=== PATIENT | female | born 1950 | race Caucasian/White ===

== ENCOUNTER 2017-04-11 08:47 | Emergency (ER) | payer MEDICARE, MEDICAID, OTHER | END 2017-04-11 09:45 | disposition home or self-care (01) | LOC: MADERS 08:47 | DX: L03.211 Cellulitis of face (principal); E78.5 Hyperlipidemia, unspecified; E66.9 Obesity, unspecified; Z87.891 Personal history of nicotine dependence | CPT/HCPCS: 99283 ==

== ENCOUNTER 2017-11-14 08:22 | Outpatient (CLI) | payer MEDICARE, MEDICAID ==
[2017-11-14 09:25] LABS: #Basophils 0.1 thou/uL (0.0-0.2); #Eosinphils 0.2 thou/uL (0.0-0.7); #Lymphocytes 3.5 thou/uL (1.20-3.40); #Monocytes 0.8 thou/uL (0.11-0.59); #Neutrophils 4.8 thou/uL (1.40-6.50); %Basophils 1.1 % (0.0-1.0); %Eosinophils 1.7 % (0.0-10.0); %Lymphocytes 37.2 % (21.0-51.0); %Monocytes 8.7 % (0.0-10.0); %Neutrophils 51.4 % (42.0-75.0); Hemoglobin 11.9 g/dL (12.0-16.0); Mean Corpuscular HGB CONC 32.5 g/dL (32.0-36.0); Mean Corpuscular Hemoglobin 28.8 pg (27.0-31.0); Mean Corpuscular Volume 88.7 fl (81.0-99.0); Mean Platelet Volume 6.7 fL (7.4-10.4); Platelet Count 327 thou/uL (130-400); RBC Distribution Width 12.9 % (11.5-14.5); Red Blood Cell (RBC) Count 4.12 mill/uL (4.20-5.40); White Blood Cell (WBC) Count 9.4 thou/uL (4.8-10.8)
[2017-11-14 09:37] LABS: Cardiac Risk 2.6 (Less than 4.5)
--- NOTE | 2017-11-14 10:07 | RAD ---
LEFT KNEE 4 VIEWS: HISTORY: Knee pain. FINDINGS: Moderate tricompartmental osteophytosis. Joint spaces are preserved. Fluid distends the suprapatell ar bursa on the lateral view. No acute fracture or dislocation. IMPRESSION: Joint fluid may reflect the otherwise mild osteoarthritic changes or internal derangement. No acute osseous abnormalities are demonstrated. POS: [facility]
--- NOTE | 2017-11-14 10:50 | RAD ---
LUMBAR SPINE 2 VIEWS: Date: 11/14/17 HISTORY: Low back pain. FINDINGS: Five lumbar-type vertebrae. Pedicles are intact. Leftward convex rotatory scoliotic curvature. Minima l spondylolisthesis at the lumbosacral junction with suggested lucencies through the pars interarticu álvaro. Vertebral body heights are maintained. Osseous structures are demineralized. Mild osteophytosi s. Minimal spondylolysis at the lumbosacral junction. Bilateral spondylolisthesis is apparent on prio r CT exams. Osseous structures are demineralized. IMPRESSION: 1. Bilateral spondylolysis at the lumbosacral junction with minimal spondylolisthesis. Stable. 2. Lumbar spondylosis. No evidence of compression fracture. 3. Constipation. POS: [facility]
== END 2017-11-14 08:23 | disposition home or self-care (01) ==
LOC: MADLABBHPM 08:22
PROVIDERS: ATTEND Family Medicine
DX: M25.562 Pain in left knee (principal); M54.42 Lumbago with sciatica, left side; E78.5 Hyperlipidemia, unspecified; G47.00 Insomnia, unspecified; F32.9 Major depressive disorder, single episode, unspecified; M47.897 Other spondylosis, lumbosacral region; M43.17 Spondylolisthesis, lumbosacral region; K59.00 Constipation, unspecified; M17.12 Unilateral primary osteoarthritis, left knee
CPT/HCPCS: 36415; 72100; 80061; 84443; 85025

== ENCOUNTER 2018-01-06 22:54 | Emergency (ER) | payer MEDICARE, OTHER ==
[2018-01-06] MEDS ORDERED: Ketorolac Tromethamine 60 MG/2 ML VIAL ONE (23:41)
--- NOTE | 2018-01-06 23:47 | RAD ---
CHEST ONE VIEW: 01/06/18 HISTORY: Chest pain. COMPARISON: Radiograph 2015. FINDINGS: There is advanced dextroscoliosis of the thoracic spine which appears to be mildly progressed in comp arison to 2015 examination. Heart size appears enlarged although may be sequela of patient's scoliosi s. No focal air space consolidation, pneumothorax or effusion. No acute osseous abnormality. IMPRESSION: Mild worsening scoliosis without acute intrathoracic abnormality. POS: [facility]
--- NOTE | 2018-01-06 23:50 | RAD ---
LUMBAR SPINE TWO VIEW: 01/06/18 HISTORY: Injury. COMPARISON: Radiographs 11/14/17. FINDINGS: The spondylolysis at L5 is similar. There is concern for anterior superior vertebral body height loss at T11 and T12 which does not appear to be progressing to comparison examination. No significant lis thesis. Mild levoscoliosis. No abnormal calcifications projecting over the expected course of the ureters. Small phleboliths in t he pelvis. IMPRESSION: T11 and T12 superior end plate height loss, age indeterminate for fracture although does not appear t o be significantly changed from the comparison examination although limited as the other exam did not have good visualization of the thoracic spine. Nonemergent followup MRI may be beneficial. POS: [facility]
== END 2018-01-07 00:25 | disposition home or self-care (01) ==
LOC: MADERS 22:54
DX: R07.89 Other chest pain (principal); M54.5 Low back pain; E78.5 Hyperlipidemia, unspecified; M19.90 Unspecified osteoarthritis, unspecified site; E66.9 Obesity, unspecified; G89.29 Other chronic pain; G47.00 Insomnia, unspecified; F32.9 Major depressive disorder, single episode, unspecified; Z79.899 Other long term (current) drug therapy; Z87.891 Personal history of nicotine dependence; W17.89XA Other fall from one level to another, initial encounter
CPT/HCPCS: 71045; 72100; 96372; J1885

== ENCOUNTER 2018-11-16 18:50 | Emergency (ER) | payer MEDICARE, OTHER ==
[~2018-11-16 18:50] MED LIST: Iopamidol 370 76% 100 ML VIAL ONE
[2018-11-16] MEDS ORDERED: Pantoprazole 40 MG VIAL ONE (19:08)
[2018-11-16] MEDS ORDERED: Sodium Chloride 0.9% 500 ML ONE (19:09)
[2018-11-16] MEDS ORDERED: Ondansetron PF 4 MG/2 ML Vial ONE ×2 (19:09→19:18)
[2018-11-16 19:19] LABS: #Basophils 0.1 thou/uL (0.0-0.2); #Lymphocytes 1.3 thou/uL (1.20-3.40); #Monocytes 0.3 thou/uL (0.11-0.59); %Basophils 0.4 % (0.0-1.0); %Lymphocytes 10.2 % (21.0-51.0); %Monocytes 2.5 % (0.0-10.0); %Neutrophils 86.9 % (42.0-75.0); Hemoglobin 10.5 g/dL (12.0-16.0); Mean Corpuscular HGB CONC 32.1 g/dL (32.0-36.0); Mean Corpuscular Hemoglobin 28.5 pg (27.0-31.0); Mean Corpuscular Volume 88.7 fL (78.0-98.0); Mean Platelet Volume 6.7 fL (7.4-10.4); Platelet Count 420 thou/uL (130-400); RBC Distribution Width 12.6 % (11.5-14.5); White Blood Cell (WBC) Count 12.7 thou/uL (4.8-10.8)
[2018-11-16 19:37] LABS: ALT (SGPT) 14 U/L (8-55); AST (SGOT) 18 U/L (5-34); Albumin 4.1 g/dL (3.4-4.8); Alkaline Phosphatase 65 U/L (40-150); Anion Gap 13 mmol/L (10-20); BUN (Urea Nitrogen) 14 mg/dL (9.8-20.1); Bilirubin, Total 0.2 mg/dL (0.2-1.2); Calc. Creatinine Clearance 0 mL/min (70-130); Calcium 9.4 mg/dL (7.8-10.44); Carbon Dioxide 27 mmol/L (23-31); Chloride 102 mmol/L (98-107); Estimated GFR-MDRD 72; Globulin 2.7 g/dL (2.4-3.5); Glucose 139 mg/dL (80-115); Potassium 3.3 mmol/L (3.5-5.1); Protein, Total 6.8 g/dL (6.0-8.3); Sodium 139 mmol/L (136-145)
[2018-11-16 20:17] LABS: Bilirubin Negative (Negative); Blood, Urine Negative (Negative); Clarity Clear (Clear); Glucose, Urine (Dipstick) 100 mg/dL (Negative); Leukocyte Negative (Negative); Nitrite Negative (Negative); Protein, Urine (Dipstick) Trace mg/dL (Neg-Trace); Urobilinogen 0.2 mg/dL (0.2-1.0)
--- NOTE | 2018-11-16 20:33 | CT ---
CT of abdomen and pelvis: 11/16/2018 COMPARISON: 11/02/2014 HISTORY: Nausea, vomiting, pain TECHNIQUE: Axial CT imaging at 5 mm intervals from lung bases through pubic symphysis with IV contras t. Coronal reformatted imaging obtained. FINDINGS: The visualized lung bases are unremarkable. The superior most aspect of the liver dome is n ot visualized. The imaged hepatic parenchyma demonstrates no acute findings. The gallbladder is distended, stable when compared to the 2014 examination, measuring 5 cm in transve rse dimension. There is a subtle isodense abnormality within the gallbladder lumen measuring 2.1 cm, likely on the basis of a noncalcified stone. This could be better assessed via follow-up ultrasou nd. Stable calcification of the spleen noted peripherally. The pancreas, adrenal glands, and kidneys appear unremarkable. The uterus appears surgically absent. The lack of oral contrast media limits assessment of the bowel. There is no evidence for bowel obstruction. The appendix is unremarkable. Vascular structures of the abdomen and pelvis appear grossly unremarkable. No lymphadenopathy is noted within the abdomen/pelvis. Osseous structures demonstrate dextroscoliosis of the upper lumbar spine. There are old posterior rib fractures bilaterally. No acute osseous abnormality is seen. Bilateral L5 pars defects are present. IMPRESSION: Stable gallbladder distention. Lesion within the gallbladder lumen may signify a noncalci fied stone. This could be better assessed via ultrasound. Numerous chronic findings as detailed above.
[2018-11-16] MEDS ORDERED: Prochlorperazine 10 MG/2 ML VIAL ONE (20:48)
[2018-11-16] MEDS ORDERED: NS 0.9% w/ 20 MEQ KCL 1,000 ML ONE (20:48)
[2018-11-16] MEDS ORDERED: HYDROmorphone 0.5 MG/0.5 ML SYRINGE ONE (20:48)
== END 2018-11-16 21:27 | disposition short-term general hospital (02) ==
LOC: MADERS 18:50
DX: E87.6 Hypokalemia (principal); I10 Essential (primary) hypertension; R10.9 Unspecified abdominal pain; R11.2 Nausea with vomiting, unspecified; F32.9 Major depressive disorder, single episode, unspecified; K21.9 Gastro-esophageal reflux disease without esophagitis; J45.909 Unspecified asthma, uncomplicated; G47.00 Insomnia, unspecified; M19.90 Unspecified osteoarthritis, unspecified site; E66.9 Obesity, unspecified; E78.5 Hyperlipidemia, unspecified; Z87.891 Personal history of nicotine dependence; Z79.899 Other long term (current) drug therapy
CPT/HCPCS: 36415; 74177; 80053; 81003; 83605; 83735; 85025; 94760; 96365; 96367; 96368; 96375; C9113; J0780; J1170; J1956; J2405; J3480; J7050; Q9967

== ENCOUNTER 2020-11-08 21:13 | Emergency (ER) | payer MEDICARE, MEDICAID ==
[2020-11-08] MEDS ORDERED: Doxycycline 100 MG CAP ONE (22:26)
== END 2020-11-08 22:29 | disposition home or self-care (01) ==
LOC: MADERS 21:13
DX: L02.811 Cutaneous abscess of head [any part, except face] (principal); J44.9 Chronic obstructive pulmonary disease, unspecified; K21.9 Gastro-esophageal reflux disease without esophagitis; I10 Essential (primary) hypertension; E78.5 Hyperlipidemia, unspecified; E78.00 Pure hypercholesterolemia, unspecified; M41.9 Scoliosis, unspecified; G47.00 Insomnia, unspecified; E66.9 Obesity, unspecified; M81.0 Age-related osteoporosis without current pathological fracture; Z79.899 Other long term (current) drug therapy; Z87.891 Personal history of nicotine dependence
CPT/HCPCS: 99282

== ENCOUNTER 2021-04-26 20:01 | Observation (INO) | payer MEDICARE, MEDICAID ==
[2021-04-26 20:57] LABS: ALT (SGPT) 8 U/L (8-55); AST (SGOT) 13 U/L (5-34); Albumin 3.9 g/dL (3.4-4.8); Alkaline Phosphatase 69 U/L (40-110); Anion Gap 13 mmol/L (10-20); Anisocytosis SLIGHT = 6-15 cells (100X) (0-5/hpf); BUN (Urea Nitrogen) 24 mg/dL (9.8-20.1); Band 1 % (5-11); Bilirubin, Total 0.3 mg/dL (0.2-1.2); Calc. Creatinine Clearance 0 mL/min (70-130); Calcium 10.2 mg/dL (7.8-10.44); Carbon Dioxide 23 mmol/L (23-31); Chloride 106 mmol/L (98-107); Eosinophils 1 % (0-10); Globulin 2.9 g/dL (2.4-3.5); Glucose 102 mg/dL (80-115); Hemoglobin 6.6 g/dL (12.0-16.0); Hypochromia MODERATE=16-30 cells (100X) (0-5/hpf); Lipase 8 U/L (8-78); Lymphocytes 22 % (21-51); MDiff Complete? YES; Mean Corpuscular HGB CONC 27.6 g/dL (32.0-36.0); Mean Corpuscular Hemoglobin 17.5 pg (27.0-31.0); Mean Corpuscular Volume 63.4 fL (78.0-98.0); Mean Platelet Volume 6.3 fL (7.4-10.4); Microcytosis SLIGHT = 6-15 cells (100X) (0-5/hpf); Monocytes 5 % (0-10); Neutrophil 71 % (42-75); Ovalocytes SLIGHT = 2-5 cells (100X) (0-1/hpf); Platelet Count 666 thou/uL (130-400); Platelet Morphology Comment Appears Increased; Poikilocytosis SLIGHT = 6-15 cells (100X) (0-5/hpf); Potassium 4.2 mmol/L (3.5-5.1); Protein, Total 6.8 g/dL (5.8-8.1); RBC Distribution Width 15.9 % (11.5-14.5); Red Blood Cell (RBC) Count 3.78 mill/uL (4.20-5.40); Reflex for Review?? YES; Sodium 138 mmol/L (136-145); White Blood Cell (WBC) Count 11.3 thou/uL (4.8-10.8)
[2021-04-26 21:26] LABS: Bilirubin Negative (Negative); Blood, Urine Negative (Negative); Clarity Clear (Clear); Glucose, Urine (Dipstick) Negative (Negative); Ketone, Urine Negative (Negative); Leukocyte Small (Negative); Nitrite Negative (Negative); Protein, Urine (Dipstick) Negative (Neg-Trace); Urobilinogen 0.2 mg/dL (Less than 2)
[2021-04-26 21:31] LABS: RBC/HPF 0-3 HPF (0-3); Specific Gravity, Urine 1.006 (1.002-1.036); Squamous Epithelial 0-3 HPF (0-3)
[2021-04-26] MEDS ORDERED: Sodium Chloride 0.9% 1,000 ML ONE (21:54)
[2021-04-27 00:14] VITALS: BMI 33.2
[2021-04-27 00:34] LABS: SARS-CoV-2 NAA Rapid Test Not Detected (NotDetected)
[2021-04-27] MEDS: Ferrous Sulfate 325 MG TAB PO SCH ×2 (08:36→20:06)
[2021-04-27] MEDS: Famotidine 20 MG TAB PO SCH ×2 (08:36→20:06)
[2021-04-27] MEDS: Lisinopril 10 MG TAB PO SCH (08:37)
[2021-04-27] MEDS: Polyethylene Glycol 3350 17 GM Packet PO SCH (08:37)
[2021-04-27] MEDS: Hydrochlorothiazide 25 MG TAB PO SCH (08:37)
[2021-04-27] MEDS ORDERED: FLUoxetine HCl 20 MG CAP PO SCH (09:00)
[2021-04-27] MEDS ORDERED: FLU VACC QS2021-22(65YR UP)/PF 240 MCG/0.7 ML SYRINGE IM ONE (09:00)
[2021-04-27] MEDS: Acetaminophen 325 MG TAB PO PRN ×3 (09:07→21:39)
[2021-04-27 13:45] LABS: Hemoglobin 5.8 g/dL (12.0-16.0); Platelet Count 555 thou/uL (130-400)
[2021-04-27] MEDS ORDERED: diphenhydrAMINE 25 MG CAP PO SCH (14:15)
[2021-04-27] MEDS ORDERED: Melatonin 3 MG TAB PO PRN (17:15)
[2021-04-27] MEDS ORDERED: Montelukast Sodium 10 mg Tablet PO SCH ×2 (21:00)
[2021-04-27] MEDS ORDERED: Cyclobenzaprine 10 MG TAB PO SCH (21:00)
[2021-04-27] MEDS ORDERED: Atorvastatin Calcium 10 MG TAB PO SCH ×2 (21:00)
[2021-04-27 22:17] LABS: Iron Binding Capacity, Total 434 mcg/dL (265-497)
[2021-04-27 22:18] LABS: Iron 230 ug/dL (50-170)
[2021-04-28 01:04] LABS: Platelet Count 494 thou/uL (130-400)
[2021-04-28] MEDS: Lisinopril 10 MG TAB PO SCH (08:24)
[2021-04-28] MEDS: Hydrochlorothiazide 25 MG TAB PO SCH (08:24)
[2021-04-28] MEDS: Famotidine 20 MG TAB PO SCH (08:25)
[2021-04-28] MEDS: Polyethylene Glycol 3350 17 GM Packet PO SCH (08:25)
[2021-04-28] MEDS: Ferrous Sulfate 325 MG TAB PO SCH (08:25)
[2021-04-28 08:44] VITALS: TEMP 98.3
[2021-04-28] MEDS ORDERED: Non-Formulary Item 1 EACH (Lisinopril/Hydrochlorothiazide [Lisinopril-Hctz 10-12.5 Mg Tab PO SCH (09:00)
[2021-04-28] MEDS ORDERED: FLUoxetine HCl 20 MG CAP PO SCH (09:00)
[2021-04-28] MEDS ORDERED: Multivit, Therapeutic 1 TAB PO SCH (09:00)
[2021-04-28] MEDS: Acetaminophen 325 MG TAB PO PRN (09:48)
[2021-04-28 12:57] VITALS: BP 136/84
== END 2021-04-28 15:46 | disposition home or self-care (01) ==
LOC: MADERS 20:01 → MADMS 22:19
PROVIDERS: ADMIT Family Medicine; ATTEND Family Medicine
DX: D50.9 Iron deficiency anemia, unspecified (principal); N30.00 Acute cystitis without hematuria; J32.9 Chronic sinusitis, unspecified; E86.0 Dehydration; I10 Essential (primary) hypertension; F41.9 Anxiety disorder, unspecified; F32.A Depression, unspecified; H91.93 Unspecified hearing loss, bilateral; F51.01 Primary insomnia; E78.2 Mixed hyperlipidemia; D75.839 Thrombocytosis, unspecified; J44.9 Chronic obstructive pulmonary disease, unspecified; K21.9 Gastro-esophageal reflux disease without esophagitis; M81.0 Age-related osteoporosis without current pathological fracture; Z20.822 Contact with and (suspected) exposure to COVID-19; Z79.82 Long term (current) use of aspirin; Z79.51 Long term (current) use of inhaled steroids; Z79.899 Other long term (current) drug therapy; Z88.0 Allergy status to penicillin; Z88.1 Allergy status to other antibiotic agents; Z88.2 Allergy status to sulfonamides; Z88.5 Allergy status to narcotic agent
CPT/HCPCS: 36415; 36430; 71045; 80053; 81003; 81015; 82274; 82728; 83540; 83550; 83605; 83690; 84484; 85014; 85018; 85025; 85049; 85060; 86850; 86900; 86901; 87086; 93005; 96365; 96376; G0378; J1956; J7050; P9016; U0002

== ENCOUNTER 2022-12-17 10:26 | Emergency (ER) | payer OTHER ==
[2022-12-17] MEDS ORDERED: Orphenadrine Citrate 60 MG/2 ML VIAL ONE (10:46)
[2022-12-17 10:57] LABS: #Basophils 0.1 thou/uL (0.0-0.2); #Eosinphils 0.2 thou/uL (0.0-0.7); #Lymphocytes 3.2 thou/uL (1.20-3.40); #Monocytes 0.7 thou/uL (0.11-0.59); #Neutrophils 4.4 thou/uL (1.40-6.50); %Basophils 1.7 % (0.0-1.0); %Eosinophils 2.1 % (0.0-10.0); %Lymphocytes 37.6 % (21.0-51.0); %Monocytes 7.8 % (0.0-10.0); %Neutrophils 50.8 % (42.0-75.0); Hemoglobin 13.1 g/dL (12.0-16.0); Mean Corpuscular HGB CONC 32.8 g/dL (32.0-36.0); Mean Corpuscular Volume 88.6 fl (78.0-98.0); Mean Platelet Volume 8.6 fL (7.4-10.4); Platelet Count 356 10x3/uL (130-400); RBC Distribution Width 12.8 % (11.5-14.5); White Blood Cell (WBC) Count 8.6 10x3/uL (4.8-10.8)
[2022-12-17 11:17] LABS: ALT (SGPT) 16 U/L (8-55); AST (SGOT) 19 U/L (5-34); Albumin 4.1 g/dL (3.4-4.8); Alkaline Phosphatase 74 U/L (40-110); Anion Gap 12 mmol/L (10-20); BUN (Urea Nitrogen) 18 mg/dL (9.8-20.1); Bilirubin, Total 0.3 mg/dL (0.2-1.2); Calc. Creatinine Clearance 0 mL/min (70-130); Calcium 10.4 mg/dL (7.8-10.44); Carbon Dioxide 28 mmol/L (23-31); Chloride 104 mmol/L (98-107); Estimated GFR 74; Globulin 2.2 g/dL (2.4-3.5); Glucose 101 mg/dL (80-115); Lipase 10 U/L (8-78); Magnesium 1.9 mg/dL (1.6-2.6); Potassium 3.6 mmol/L (3.5-5.1); Protein, Total 6.3 g/dL (5.8-8.1); Sodium 140 mmol/L (136-145)
[2022-12-17 11:59] LABS: Bilirubin Negative (Negative); Blood, Urine Negative (Negative); Clarity Clear (Clear); Glucose, Urine (Dipstick) Negative (Negative); Ketone, Urine Negative (Negative); Leukocyte Trace (Negative); Nitrite Negative (Negative); Protein, Urine (Dipstick) Negative (Neg-Trace); Urobilinogen 0.2 mg/dL (Less than 2)
[2022-12-17 12:02] LABS: Bacteria/HPF Rare-Few HPF (None Seen); CAUTI Indications for Culture Pelvic or flank pain; RBC/HPF 0-3 HPF (0-3); Squamous Epithelial 0-3 HPF (0-3); WBC/HPF 0-3 HPF (0-3)
[2022-12-17 12:03] LABS: Urine Culture Reflex No No
== END 2022-12-17 13:10 | disposition home or self-care (01) ==
LOC: MADERS 10:26
DX: M54.50 Low back pain, unspecified (principal); Z76.0 Encounter for issue of repeat prescription; J44.9 Chronic obstructive pulmonary disease, unspecified; K21.9 Gastro-esophageal reflux disease without esophagitis; I10 Essential (primary) hypertension; E78.00 Pure hypercholesterolemia, unspecified; E66.9 Obesity, unspecified; Z87.891 Personal history of nicotine dependence
CPT/HCPCS: 70450; 71045; 80053; 81001; 83690; 83735; 83880; 84484; 85025; 93005; 96372; J2360